=== PATIENT | female | born 1950 | race Caucasian/White ===

== ENCOUNTER → 2016-12-18 | Day surgery (SDC) | payer MEDICARE, OTHER ==
[~2016-12-18] VITALS: Ht 162.6 cm; Wt 83.9 kg
[~2016-12-18] MED LIST: /IPRA3SP; /MOXI40TA; ACETAMINOPHEN 325 MG TAB PO PRN; ACETYLCHOLINE OPHTH SOLN 1% 2ML As Ordered ONE; ALBU83IN; ASPI325T PO; ATEN100T PO; ATENOLOL50 PO; AcetaZOLAMIDE 500 MG ER CAP PO ONE; BABY81CH; BSS with VANC/TOB/EPI for EYE CASES IR ONE; CEFUROXIME 1MG/0.1ML INTRACAMERAL INJ As Ordered ONE; CEFUROXIME 1MG/0.1ML INTRACAMERAL INJ ICAM ONE; CYCLOPENTOLATE 2% OPHTH SOLN XX ONE; HEALON DUET (HEALON 10MG/ML 0.55ML & HEALON ENDOCOAT 30MG/ML 0.85ML) As Ordered ONE; HYDR12.55 PO; KETOROLAC 0.5% OPHTH SOLN XX ONE; LIDOCAINE 1% SDV 5 ML VIAL As Ordered ONE; LIDOCAINE 4% INJ 5 ML AMP OU ONE; LIPI20TA; MIDAZOLAM INJ 2 MG/2 ML VIAL (J2250) As Ordered ONE; OFLOXACIN 0.3 % (OCUFLOX) OPTH SOL 5ML XX ONE; PHENYLEPHRINE 2.5% OPHTH SOL 2ML XX ONE; POVIDONE-IODINE 5% OPHTH PREP SOL 30ML As Ordered ONE; PRAVACHOL2 PO; PROPARACAINE 0.5% OPHTH SOL 15ML XX PRN; PROV90AE; TENO50TA; TRIMETHOBENZAMIDE 300 MG CAP PO PRN; TROPICAMIDE 1% OPHTH SOLN 2 ML XX ONE; [UNRECOGNIZED DRUG - OTHER] TOPICAL; fentaNYL 100 MCG/2 ML INJECTION (J3010) As Ordered ONE
[2016-12-18 09:40] VITALS: BP 120/86
--- NOTE | 2016-12-18 13:28 | RO ---
DATE OF PROCEDURE: 12/18/2016 PREOPERATIVE DIAGNOSIS: Age related nuclear cataract, right eye. POSTOPERATIVE DIAGNOSIS: Age related nuclear cataract, right eye. PROCEDURE PERFORMED: Phacoemulsification and posterior chamber intraocular lens implantation, right eye. Lens used was a PCB00 17.5 diopters. SURGEON: Poornima Phillips MD FUNERAL HOME ASSISTANT: ANESTHESIA: Topical with sedation. DESCRIPTION OF PROCEDURE: The patient was prepped and draped in the usual fashion. A lid speculum was placed between the lids. The eye was fixated. A stab incision was made to the anterior chamber, and 1% non-preserved lidocaine was instilled. Then, viscoelastic was instilled. The eye was re-fixated. A 2.75 mm sapphire keratome was used to make a clear corneal temporal limbal incision. Capsulorrhexis was begun with a 30-gauge bent needle and then carried out in a circular fashion with capsulorrhexis forceps. The lens was hydrodissected, and then the phacoemulsification unit was used to make a groove in the nucleus in two meridians. The nucleus was then cracked into four quadrants. Each quadrant was removed with the phacoemulsification unit. Any remaining cortex was removed with the irrigation and aspiration (I and A) unit. Capsular bag was refilled with viscoelastic. A posterior chamber intraocular lens was placed in the capsular bag without difficulty. Any remaining viscoelastic was removed with the I and A unit. The wound was hydrated, and Miochol and cefuroxime were instilled into the anterior chamber. The patient tolerated the procedure well and went to the recovery room in stable condition.
== END | disposition home or self-care (01) ==
LOC: M SDC 06:25
PROVIDERS: ATTEND Ophthalmology
DX: H25.11 Age-related nuclear cataract, right eye (principal); I10 Essential (primary) hypertension; G47.30 Sleep apnea, unspecified; J44.9 Chronic obstructive pulmonary disease, unspecified; Z72.0 Tobacco use; Z88.5 Allergy status to narcotic agent; Z79.899 Other long term (current) drug therapy; Z79.82 Long term (current) use of aspirin; Z98.51 Tubal ligation status
CPT/HCPCS: 66984; J2250; J3010; V2632

== ENCOUNTER → 2016-12-25 | Day surgery (SDC) | payer MEDICARE, OTHER ==
[~2016-12-25] VITALS: Ht 162.6 cm; Wt 83.9 kg
[~2016-12-25] MED LIST changes: +ACETYLCHOLINE OPHTH SOLN 1% 2ML XX ONE; +CYCLOPENTOLATE 2% OPHTH SOLN As Ordered ONE; +CYCLOPENTOLATE 2% OPHTH SOLN OS ONE; -CYCLOPENTOLATE 2% OPHTH SOLN XX ONE; +D5W/0.2% SODIUM CHLORIDE 1,000 ML IV SCH; +HEALON DUET (HEALON 10MG/ML 0.55ML & HEALON ENDOCOAT 30MG/ML 0.85ML) XX ONE; +KETOROLAC 0.5% OPHTH SOLN OS ONE; -KETOROLAC 0.5% OPHTH SOLN XX ONE; +LIDOCAINE 1% SDV 5 ML VIAL XX ONE; +OFLOXACIN 0.3 % (OCUFLOX) OPTH SOL 5ML As Ordered ONE; +OFLOXACIN 0.3 % (OCUFLOX) OPTH SOL 5ML OS ONE; -OFLOXACIN 0.3 % (OCUFLOX) OPTH SOL 5ML XX ONE; +PHENYLEPHRINE 2.5% OPHTH SOL 2ML As Ordered ONE; +PHENYLEPHRINE 2.5% OPHTH SOL 2ML OS ONE; -PHENYLEPHRINE 2.5% OPHTH SOL 2ML XX ONE; +PROPARACAINE 0.5% OPHTH SOL 15ML OS PRN; -PROPARACAINE 0.5% OPHTH SOL 15ML XX PRN; +TROPICAMIDE 1% OPHTH SOLN 2 ML As Ordered ONE; +TROPICAMIDE 1% OPHTH SOLN 2 ML OS ONE; -TROPICAMIDE 1% OPHTH SOLN 2 ML XX ONE
[2016-12-25 12:25] VITALS: BP 134/64
--- NOTE | 2016-12-25 13:44 | RO ---
DATE OF PROCEDURE: 12/25/2016 PREPROCEDURE DIAGNOSIS: Age-related nuclear cataract, left eye. POSTPROCEDURE DIAGNOSIS: Age-related nuclear cataract, left eye. PROCEDURE PERFORMED: Phacoemulsification and posterior chamber intraocular lens implantation, left eye. Lens used is a PCB 00 16.5 diopter. SURGEON: Poornima Phillips MD SWEEPER OPERATOR HIGHWAYS: ANESTHESIA: Topical with sedation. DESCRIPTION OF PROCEDURE: The patient was prepped and draped in the usual fashion. A lid speculum was placed between the lids. The eye was fixated. A stab incision was made to the anterior chamber, and 1% nonpreserved Lidocaine was instilled. Then, viscoelastic was instilled. The eye was refixated. A 2.75 mm sapphire keratome was used to make a clear corneal temporal limbal incision. Capsulorrhexis was begun with a 30-gauge bent needle and then carried out in a circular fashion with capsulorrhexis forceps. The lens was hydrodissected, and then the phacoemulsification unit was used to make a groove in the nucleus and two meridians. The nucleus was then cracked into four quadrants. Each quadrant was removed with the phacoemulsification unit. Any remaining cortex was removed with the I and A unit. Capsular bag was refilled with viscoelastic. A posterior chamber intraocular lens was placed in the capsular bag without difficulty. Any remaining viscoelastic was removed with the I and A unit. The wound was hydrated, and Miochol and cefuroxime were instilled into the anterior chamber.
== END | disposition home or self-care (01) ==
LOC: M SDC 09:21
PROVIDERS: ATTEND Ophthalmology
DX: H25.12 Age-related nuclear cataract, left eye (principal); I10 Essential (primary) hypertension; E78.00 Pure hypercholesterolemia, unspecified; E11.9 Type 2 diabetes mellitus without complications; J44.9 Chronic obstructive pulmonary disease, unspecified; G47.33 Obstructive sleep apnea (adult) (pediatric); E55.9 Vitamin D deficiency, unspecified; F17.290 Nicotine dependence, other tobacco product, uncomplicated; Z88.5 Allergy status to narcotic agent; Z79.899 Other long term (current) drug therapy; Z79.82 Long term (current) use of aspirin; Z98.51 Tubal ligation status
CPT/HCPCS: 66984; J2250; J3010; V2632

== ENCOUNTER → 2018-01-12 | Outpatient (CLI) | payer MEDICARE, MEDICAID | LOC: M RAD 09:55 | DX: F17.210 Nicotine dependence, cigarettes, uncomplicated (principal) | CPT/HCPCS: G0297 ==

== ENCOUNTER → 2018-02-02 | Outpatient (REF) | payer MEDICARE, MEDICAID ==
[2018-02-02 14:39] LABS: BASO % 0.6 % (0.0-1.0); EOS # 0.1 10^3/uL (0.0-0.50); EOS % 1.9 % (0.0-3.0); HEMATOCRIT 37.9 % (36.0-47.0); HEMOGLOBIN 12.6 g/dl (12.0-16.0); IMMATURE GRANULOCYTE % 0.2 % (0-3.0); LYMPH # 1.8 10^3/uL (1.5-4.5); MEAN CORPUSCULAR HEMOGLOBIN 30.8 pg (27.0-33.0); MEAN CORPUSCULAR HGB CONC 33.2 g/dl (32.0-36.5); MEAN CORPUSCULAR VOLUME 92.7 fl (80.0-96.0); MONO # 0.3 10^3/uL (0.0-0.8); MONO % 6.4 % (0.0-5.0); NEUTROPHILS # 2.5 10^3/uL (1.8-7.7); NEUTROPHILS % 52.9 % (36.0-66.0); PLATELET COUNT, AUTOMATED 147 10^3/uL (150-450); RED BLOOD COUNT 4.09 10^6/uL (4.00-5.40); RED CELL DISTRIBUTION WIDTH 12.2 % (11.5-14.5); WHITE BLOOD COUNT 4.7 10^3/uL (4.0-10.0)
[2018-02-02 15:08] LABS: ALBUMIN 3.5 GM/DL (3.2-5.2); ALKALINE PHOSPHATASE 71 U/L (45-117); ALT/SGPT 26 U/L (12-78); ANION GAP 5 MEQ/L (8-16); AST/SGOT 21 U/L (7-37); BILIRUBIN,TOTAL 0.6 MG/DL (0.2-1.0); BLOOD UREA NITROGEN 12 MG/DL (7-18); CALCIUM LEVEL 8.3 MG/DL (8.8-10.2); CARBON DIOXIDE LEVEL 30 MEQ/L (21-32); CHLORIDE LEVEL 107 MEQ/L (98-107); CHOLESTEROL LEVEL 194 MG/DL (<200); CREATININE FOR GFR 0.63 MG/DL (0.55-1.30); FREE T4 1.03 NG/DL (0.76-1.46); GLOMERULAR FILTRATION RATE > 60.0 (>45); GLUCOSE, FASTING 82 MG/DL (70-100); HDL CHOLESTEROL 50 MG/DL (>40); LDL CHOLESTEROL 122.8 MG/DL (<100); NON-HDL-C 144 MG/DL; POTASSIUM SERUM 4.5 MEQ/L (3.5-5.1); SODIUM LEVEL 142 MEQ/L (136-145); TRIGLYCERIDES LEVEL 106 MG/DL (<150)
[2018-02-02 15:34] LABS: ESTIMATED AVERAGE GLUCOSE 114 MG/DL (60-110); HEMOGLOBIN A1c 5.6 %
== END ==
LOC: M SFHCSACK 10:49
DX: I10 Essential (primary) hypertension (principal); E78.4 Other hyperlipidemia; Z13.29 Encounter for screening for other suspected endocrine disorder; E11.9 Type 2 diabetes mellitus without complications; E55.9 Vitamin D deficiency, unspecified
CPT/HCPCS: 84443

== ENCOUNTER → 2018-04-21 | Outpatient (REF) | payer MEDICARE, MEDICAID | LOC: M SFHCLERA 09:07 | DX: D23.61 Other benign neoplasm of skin of right upper limb, including shoulder (principal) | CPT/HCPCS: 88304 ==

== ENCOUNTER → 2018-05-15 | Outpatient (CLI) | payer MEDICARE, MEDICAID ==
[2018-05-15 13:04] LABS: BASO % 0.5 % (0.0-1.0); EOS # 0.1 10^3/uL (0.0-0.50); EOS % 1.7 % (0.0-3.0); HEMATOCRIT 45.9 % (36.0-47.0); HEMOGLOBIN 15.4 g/dl (12.0-15.5); IMMATURE GRANULOCYTE % 0.7 % (0-3.0); LYMPH # 2.1 10^3/uL (1.5-4.5); LYMPH % 34.4 % (24.0-44.0); MEAN CORPUSCULAR HEMOGLOBIN 30.9 pg (27.0-33.0); MEAN CORPUSCULAR HGB CONC 33.6 g/dl (32.0-36.5); MONO # 0.3 10^3/uL (0.0-0.8); MONO % 5.6 % (0.0-5.0); NEUTROPHILS # 3.5 10^3/uL (1.8-7.7); NEUTROPHILS % 57.1 % (36.0-66.0); PLATELET COUNT, AUTOMATED 138 10^3/uL (150-450); RED BLOOD COUNT 4.99 10^6/uL (4.00-5.40); RED CELL DISTRIBUTION WIDTH 12.5 % (11.5-14.5); WHITE BLOOD COUNT 6.1 10^3/uL (4.0-10.0)
[2018-05-15 13:23] LABS: ALBUMIN 3.9 GM/DL (3.2-5.2); ALBUMIN/GLOBULIN RATIO 1.11 (1.00-1.93); ALKALINE PHOSPHATASE 61 U/L (45-117); ALT/SGPT 20 U/L (12-78); ANION GAP 9 MEQ/L (8-16); AST/SGOT 14 U/L (7-37); BILIRUBIN,TOTAL 0.8 MG/DL (0.2-1.0); BLOOD UREA NITROGEN 12 MG/DL (7-18); CALCIUM LEVEL 9.1 MG/DL (8.8-10.2); CARBON DIOXIDE LEVEL 30 MEQ/L (21-32); CHLORIDE LEVEL 103 MEQ/L (98-107); GLOMERULAR FILTRATION RATE > 60.0 (>45); GLUCOSE, FASTING 95 MG/DL (70-100); POTASSIUM SERUM 4.2 MEQ/L (3.5-5.1); SODIUM LEVEL 142 MEQ/L (136-145); TOTAL PROTEIN 7.4 GM/DL (6.4-8.2)
[2018-05-15 13:28] LABS: TOTAL 25(OH) VITAMIN D 51.1 NG/ML (30.0-100.0)
== END ==
LOC: M WUC 09:31
DX: I10 Essential (primary) hypertension (principal); E78.4 Other hyperlipidemia; E55.9 Vitamin D deficiency, unspecified
CPT/HCPCS: 80053

== ENCOUNTER → 2018-08-24 | Outpatient (REF) | payer MEDICARE, MEDICAID ==
[2018-08-24 14:57] LABS: BASO % 0.5 % (0.0-1.0); EOS # 0.1 10^3/uL (0.0-0.50); HEMOGLOBIN 15.8 g/dl (12.0-15.5); IMMATURE GRANULOCYTE % 0.3 % (0-3.0); LYMPH # 1.6 10^3/uL (1.5-4.5); LYMPH % 26.8 % (24.0-44.0); MEAN CORPUSCULAR HEMOGLOBIN 31.5 pg (27.0-33.0); MEAN CORPUSCULAR HGB CONC 33.6 g/dl (32.0-36.5); MEAN CORPUSCULAR VOLUME 93.6 fl (80.0-96.0); MONO # 0.4 10^3/uL (0.0-0.8); MONO % 5.7 % (0.0-5.0); NEUTROPHILS # 3.9 10^3/uL (1.8-7.7); NEUTROPHILS % 64.7 % (36.0-66.0); PLATELET COUNT, AUTOMATED 138 10^3/uL (150-450); RED BLOOD COUNT 5.02 10^6/uL (4.00-5.40); RED CELL DISTRIBUTION WIDTH 12.5 % (11.5-14.5); WHITE BLOOD COUNT 6.1 10^3/uL (4.0-10.0)
[2018-08-24 15:30] LABS: ALBUMIN/GLOBULIN RATIO 1.11 (1.00-1.93); ALKALINE PHOSPHATASE 62 U/L (45-117); ALT/SGPT 22 U/L (12-78); ANION GAP 8 MEQ/L (8-16); AST/SGOT 20 U/L (7-37); BILIRUBIN,TOTAL 0.9 MG/DL (0.2-1.0); BLOOD UREA NITROGEN 10 MG/DL (7-18); CALCIUM LEVEL 9.3 MG/DL (8.8-10.2); CARBON DIOXIDE LEVEL 30 MEQ/L (21-32); CHLORIDE LEVEL 102 MEQ/L (98-107); CHOLESTEROL LEVEL 208 MG/DL (<200); CHOLESTEROL RISK RATIO 3.714 (<5); CREATININE FOR GFR 0.65 MG/DL (0.55-1.30); GLOMERULAR FILTRATION RATE > 60.0 (>45); GLUCOSE, FASTING 87 MG/DL (70-100); HDL CHOLESTEROL 56 MG/DL (>40); LDL CHOLESTEROL 129 MG/DL (<100); NON-HDL-C 152 MG/DL; POTASSIUM SERUM 5.1 MEQ/L (3.5-5.1); SODIUM LEVEL 140 MEQ/L (136-145); TOTAL PROTEIN 7.6 GM/DL (6.4-8.2); TRIGLYCERIDES LEVEL 117 MG/DL (<150)
[2018-08-24 15:34] LABS: ESTIMATED AVERAGE GLUCOSE 108 MG/DL (60-110); HEMOGLOBIN A1c 5.4 %
== END ==
LOC: M SFHCSACK 08:52
DX: I10 Essential (primary) hypertension (principal); E78.4 Other hyperlipidemia; E11.9 Type 2 diabetes mellitus without complications
CPT/HCPCS: 80053

== ENCOUNTER 2018-12-03 13:10 | Inpatient (IN) | payer MEDICARE, MEDICAID ==
[~2018-12-03] VITALS: Ht 157.5 cm; Wt 88.0 kg
[~2018-12-03 13:10] MED LIST changes: -ACETAMINOPHEN 325 MG TAB PO PRN; -ACETYLCHOLINE OPHTH SOLN 1% 2ML As Ordered ONE; -ACETYLCHOLINE OPHTH SOLN 1% 2ML XX ONE; -AcetaZOLAMIDE 500 MG ER CAP PO ONE; -BSS with VANC/TOB/EPI for EYE CASES IR ONE; -CEFUROXIME 1MG/0.1ML INTRACAMERAL INJ As Ordered ONE; -CEFUROXIME 1MG/0.1ML INTRACAMERAL INJ ICAM ONE; -CYCLOPENTOLATE 2% OPHTH SOLN As Ordered ONE; -CYCLOPENTOLATE 2% OPHTH SOLN OS ONE; -D5W/0.2% SODIUM CHLORIDE 1,000 ML IV SCH; -HEALON DUET (HEALON 10MG/ML 0.55ML & HEALON ENDOCOAT 30MG/ML 0.85ML) As Ordered ONE; -HEALON DUET (HEALON 10MG/ML 0.55ML & HEALON ENDOCOAT 30MG/ML 0.85ML) XX ONE; -KETOROLAC 0.5% OPHTH SOLN OS ONE; -LIDOCAINE 1% SDV 5 ML VIAL As Ordered ONE; -LIDOCAINE 1% SDV 5 ML VIAL XX ONE; -LIDOCAINE 4% INJ 5 ML AMP OU ONE; -MIDAZOLAM INJ 2 MG/2 ML VIAL (J2250) As Ordered ONE; -OFLOXACIN 0.3 % (OCUFLOX) OPTH SOL 5ML As Ordered ONE; -OFLOXACIN 0.3 % (OCUFLOX) OPTH SOL 5ML OS ONE; -PHENYLEPHRINE 2.5% OPHTH SOL 2ML As Ordered ONE; -PHENYLEPHRINE 2.5% OPHTH SOL 2ML OS ONE; -POVIDONE-IODINE 5% OPHTH PREP SOL 30ML As Ordered ONE; -PROPARACAINE 0.5% OPHTH SOL 15ML OS PRN; -TRIMETHOBENZAMIDE 300 MG CAP PO PRN; -TROPICAMIDE 1% OPHTH SOLN 2 ML As Ordered ONE; -TROPICAMIDE 1% OPHTH SOLN 2 ML OS ONE; -fentaNYL 100 MCG/2 ML INJECTION (J3010) As Ordered ONE
[2018-12-03 13:45] LABS: BASO % 0.4 % (0.0-1.0); EOS # 0.1 10^3/uL (0.0-0.50); EOS % 1.3 % (0.0-3.0); HEMATOCRIT 47.3 % (36.0-47.0); HEMOGLOBIN 16.2 g/dl (12.0-15.5); LYMPH # 1.9 10^3/uL (1.5-4.5); MEAN CORPUSCULAR HEMOGLOBIN 31.5 pg (27.0-33.0); MEAN CORPUSCULAR HGB CONC 34.2 g/dl (32.0-36.5); MEAN CORPUSCULAR VOLUME 91.8 fl (80.0-96.0); MONO # 0.4 10^3/uL (0.0-0.8); MONO % 5.1 % (0.0-5.0); NEUTROPHILS # 5.1 10^3/uL (1.8-7.7); NEUTROPHILS % 67.9 % (36.0-66.0); PLATELET COUNT, AUTOMATED 149 10^3/uL (150-450); RED BLOOD COUNT 5.15 10^6/uL (4.00-5.40); WHITE BLOOD COUNT 7.4 10^3/uL (4.0-10.0)
[2018-12-03] MEDS ORDERED: GENTAMICIN 0.3% OPHTH OINT 3.5 GM OU ONE (13:45)
[2018-12-03 13:50] LABS: INR 0.96; PROTHROMBIN TIME 12.9 SECONDS (12.1-14.4)
[2018-12-03 13:51] LABS: PARTIAL THROMBOPLASTIN TIME 35.1 SECONDS (25.4-37.6)
--- NOTE | 2018-12-03 13:56 | REP ---
CT Head without contrast HISTORY: Infarction COMPARISON: 12/30/2006 Areas of decreased attenuation are present in the periventricular white matter. This represents small-vessel ischemic disease. There is no intraparenchymal hemorrhage, acute infarct, mass or midline shift. The ventricular system the ventricular system and cortical sulci are dilated consistent with minimal volume loss. There is no extra cerebral collection. There is no fracture. A 1.7 cm lucent defect is present in the right parietal bone at the vertex. This most likely represents a hemangioma. The visualized sinuses are clear. IMPRESSION: 1. Small vessel ischemic disease. 2. Minimal volume loss. Electronically Signed by Jai Lockett MD 12/03/2018 01:48 P
[2018-12-03 13:58] LABS: BLOOD UREA NITROGEN 10 MG/DL (7-18); CALCIUM LEVEL 8.9 MG/DL (8.8-10.2); CARBON DIOXIDE LEVEL 28 MEQ/L (21-32); CHLORIDE LEVEL 101 MEQ/L (98-107); CPK CREATINE PHOSPHOKINASE 109 U/L (26-192); CREATININE FOR GFR 0.75 MG/DL (0.55-1.30); GLOMERULAR FILTRATION RATE > 60.0 (>45); GLUCOSE, FASTING 133 MG/DL (70-100); MB/CK RELATIVE INDEX 1.65 (< OR =4); POTASSIUM SERUM 3.7 MEQ/L (3.5-5.1); SODIUM LEVEL 135 MEQ/L (136-145); TROPONIN I < 0.02 NG/ML (< 0.10)
--- NOTE | 2018-12-03 14:08 | REP ---
Chest one-view HISTORY: Infarction Comparison: 11/03/2008 The lungs are clear. The heart is upper limits of normal in size. The pulmonary vasculature is normal in appearance. Impression: No acute disease. Electronically Signed by Jai Lockett MD 12/03/2018 01:59 P
[2018-12-03] MEDS ORDERED: HYDR25TAB PO (14:55)
[2018-12-03] MEDS ORDERED: ATEN100T PO (14:55)
[2018-12-03] MEDS ORDERED: ACETAMINOPHEN TAB 650MG DOSE (2X325MG) PO PRN (16:00)
[2018-12-03] MEDS ORDERED: NICOTINE 21MG/24HR 1 EA TRANSDERMAL TD PRN (16:00)
[2018-12-03] MEDS ORDERED: GLUCOSE 4 GM CHEW TABLET PO PRN (16:00)
[2018-12-03] MEDS ORDERED: ONDANSETRON 4MG/2ML VIAL (J2405) IV PRN (16:00)
[2018-12-03] MEDS ORDERED: GLUCAGON FOR INJ 1 MG VIAL (J1610) SC PRN (16:00)
[2018-12-03] MEDS ORDERED: DEXTROSE 50% 50 ML SYRINGE IV PRN (16:00)
[2018-12-03] MEDS ORDERED: PROHANCE 279.3MG/ML 5ML VIAL (A9576) As Ordered ONE (16:01)
[2018-12-03] MEDS ORDERED: PROHANCE 279.3MG/ML 15ML VIAL (A9576) As Ordered ONE (16:02)
--- NOTE | 2018-12-03 17:05 | REP ---
MR of the brain without contrast History: Right facial droop 3-D [id number] MR angiography was performed at the level of the [place] of [place]. There is no aneurysm or arteriovenous malformation. There is origin of the posterior cerebral arteries. The vertebral arteries and basilar artery are hypoplastic. Moderate to severe atherosclerotic disease involves the distal left vertebral and basilar arteries. Major intracranial vessels are patent. Impression 1. There is no aneurysm or arteriovenous malformation. 2. Atherosclerotic disease as described above. Electronically Signed by Jai Lockett MD 12/03/2018 04:56 P
--- NOTE | 2018-12-03 17:25 | REP ---
MR BRAIN WITHOUT CONTRAST: HISTORY: Right visual droop. COMPARISON: CT 12/03/2018. Areas of increased signal intensity on T2-weighted images are present in the periventricular and subcortical white matter. This represents small vessel ischemic disease. There is no intraparenchymal hemorrhage, infarct, mass or midline shift. The ventricular system and cortical sulci are dilated consistent with minimal volume loss. There is no extracerebral collection. A 1.7 cm focus of increased signal intensity is present in the right parietal bone at the vertex. This most likely represents a hemangioma. The sinuses are clear. IMPRESSION: 1. Small vessel ischemic disease. 2. Minimal volume loss. Electronically Signed by Jai Lockett MD 12/04/2018 08:32 A
[2018-12-03] MEDS: HumaLOG INSULIN (NovoLOG) PER UNIT SC SCH (17:30)
--- NOTE | 2018-12-03 18:10 | REPVR ---
EXAM: MR Angiography Neck Without and With Contrast EXAM DATE/TIME: 12/03/2018 4:50 PM CLINICAL HISTORY: 68 years old, female; Signs and symptoms; Weakness; Patient HX: Right facial droop TECHNIQUE: Magnetic resonance angiography images of the neck without and with intravenous contrast. COMPARISON: MRA BRAIN W/O CONTRAST 12/03/2018 4:18 PM FINDINGS: Right common carotid artery: Normal. No significant stenosis. No dissection or occlusion. Right internal carotid artery: Mild atherosclerosis with less than 50% stenosis. No dissection or occlusion. Right external carotid artery: Normal. No significant stenosis. No dissection or occlusion. Right vertebral artery: Diffusely hypoplastic. The proximal 1.2 cm of the right vertebral artery from the origin not well visualized. Left common carotid artery: Normal. No significant stenosis. No dissection or occlusion. Left internal carotid artery: Mild atherosclerosis with less than 50% stenosis. No dissection or occlusion. Left external carotid artery: Normal. No significant stenosis. No dissection or occlusion. Left vertebral artery: Normal. No significant stenosis. No dissection or occlusion. IMPRESSION: No hemodynamically significant stenosis. Congenitally hypoplastic RIGHT vertebral artery, proximal most segment from the origin not well seen. This may be due to slow flow versus severe stenosis. COMMENT: Reference per NASCET criteria for degree of stenosis: Mild: <50% stenosis. Moderate: 50-69% stenosis. Severe: 70-94% stenosis. Near occlusion: 95-99% stenosis. Electronically signed by: Rhina Vasquez On 12/03/2018 18:10:08 PM
--- NOTE | 2018-12-03 18:12 | HPE ---
DATE OF ADMISSION: 12/03/2018 PRIMARY CARE PROVIDER: Lulu Mckoy NEUROLOGIST: Dr. Whitfield CHIEF COMPLAINT: Right-sided facial droop. HISTORY OF THE PRESENT ILLNESS: This is a 68-year-old female patient with underlying medical history of hypertension, dyslipidemia, diabetes mellitus - diet controlled, chronic obstructive pulmonary disease (COPD), obstructive sleep apnea - not on continuous positive airway pressure (CPAP), vitamin D deficiency, history of transient ischemic attack (TIA), presented since yesterday afternoon with right-sided facial droop and left-sided facial numbness. The facial numbness, as per patient, is around the lips and has been intermittent. Right-sided facial droop persisted. The patient became more concerned after speaking with the family, subsequently presented to the hospital today. Denies any trouble swallowing. Denies any vision change, hearing change. Denies any recent upper respiratory infection (URI). Denies any headache. Denies any other motor deficits. Denies recent travel. No fevers or chills. ALLERGIES: To CODEINE. PAST MEDICAL HISTORY: See above. PAST SURGICAL HISTORY: Tubal ligation. Cataract surgery, bilateral. Sebaceous cystectomy of right arms. FAMILY HISTORY: Father with cancer. Mother of a stroke. SOCIAL HISTORY: Patient current smoker one pack per day, refused nicotine patch. Drinks wine once a month on rare occasions. No other illicit drug use. REVIEW OF SYSTEMS: Reported right-sided facial droop and left-sided facial numbness. All other review of systems are negative. HOME MEDICATIONS: - aspirin 325 mg by mouth daily - atenolol 100 mg by mouth nightly - hydrochlorothiazide 25 mg by mouth daily PHYSICAL EXAMINATION: VITAL SIGNS: Temperature 97.6, pulse 53, respirations 20, blood pressure 140/63, pulse oximetry 95% on room air. GENERAL: Patient obese, alert, comfortable, in no acute distress. HEENT: Noted significant right-sided facial droop with flattening of left nasal labial fold. Right-sided periocular muscle is also weak. Decreased ability to close patient's right eye. Sensation to light touch intact bilateral facial. Other cranial nerves grossly intact. Pupils bilateral equal, round and reactive. PULMONARY: Bilateral clear. CARDIAC: Regular, S1, S2. No murmurs detected. ABDOMEN: Soft, nontender, obese. EXTREMITIES: No clubbing, cyanosis, or edema. NEUROLOGIC: Right-sided facial droop. Right 7th nerve palsy. All other cranial nerves grossly intact. Strength bilateral upper and lower extremities 5/5. Crxygu-hj-zhkt intact. EKG: Sinus bradycardia at 52. LABORATORY: WBC 7.4, hemoglobin and hematocrit 16.2 over 47.3, platelets 149. Chemistry: Sodium 135, potassium 3.7, chloride 101, bicarbonate 28, BUN 10, creatinine 0.75. Cardiac enzymes negative times one. ASSESSMENT AND PLAN: This is a 68-year-old female patient with underlying medical history of obesity, hypertension, dyslipidemia, diabetes mellitus - diet controlled, chronic obstructive pulmonary disease, obstructive sleep apnea - not on CPAP, history of transient ischemic attack 2006, low vitamin D level, presented with a one-day history of right-sided facial droop and left-sided facial numbness. PROBLEMS: 1. Right-sided facial droop. Right 7th cranial nerve palsy. Possible TIA versus Hancock's palsy. Initially, neurology consulted, MRI is appreciated, neurologic checks. Initially started on aspirin 325 mg and Lipitor. Given MRI is negative, case discussed with neurology, likely secondary to Hancock's palsy. Patient started on prednisone and valacyclovir but will continue patient's home dose of aspirin. Likely discharge in the next 24 hours. Artificial Tears have also been ordered. 2. Hypertension. Given MRI has been negative, patient's blood pressure medication has been restarted with atenolol and hydrochlorothiazide. Monitor blood pressure. 3. Dyslipidemia. Starting statin. Will followup lipid panel. 4. Diabetes - diet controlled. Given the patient is on steroid, will place the patient on insulin according to protocol. Follow fingersticks. Followup A1c. 5. Obstructive sleep apnea. ISAEL protocol. Patient not compliant with BiPAP. 6. History of transient ischemic attack. Continue aspirin and statin. Continue blood pressure medication as ordered. 7. Obesity, complicating care. 8. Deep vein thrombosis (DVT) prophylaxis. Heparin subcu. DISPOSITION: Likely discharge in the next 24 hours.
[2018-12-03 18:15] VITALS: BP_SYST 150
[2018-12-03 18:29] LABS: C REACTIVE PROTEIN QUANTITATIV < 0.30 MG/DL (0.00-0.30); CPK CREATINE PHOSPHOKINASE 98 U/L (26-192); MB/CK RELATIVE INDEX 1.84 (< OR =4); TROPONIN I < 0.02 NG/ML (< 0.10)
[2018-12-03 18:32] LABS: FREE THYROXINE INDEX 4.1 % (1.3-4.8); THYROID STIMULATING HORMONE 3.58 uIU/ML (0.358-3.740); THYROXINE (T4) 11.5 UG/DL (4.5-12.0)
[2018-12-03] MEDS: predniSONE 20 MG TAB PO SCH (18:50)
[2018-12-03 19:49] VITALS: BP 132/62
[2018-12-03 21:00] VITALS: BP 132/62
[2018-12-03] MEDS ORDERED: ATORVASTATIN 20 MG TAB PO SCH (21:00)
[2018-12-03] MEDS: DOCUSATE SODIUM 100 MG CAP PO SCH (21:00)
[2018-12-03] MEDS ORDERED: ATENOLOL 50 MG TAB PO SCH (21:00)
[2018-12-03] MEDS: valACYclovir HCL 500 MG TAB PO SCH (22:01)
[2018-12-03] MEDS: HEPARIN SOD (PORCINE) 5000 UNITS/ML VIAL SC SCH (22:01)
[2018-12-03] MEDS: POLYVINYL ALCOHOL OPHTH SOLN 15 ML(LIQUITEARS) OD SCH (22:02)
[2018-12-03 23:36] LABS: CPK CREATINE PHOSPHOKINASE 156 U/L (26-192); MB/CK RELATIVE INDEX 2.12 (< OR =4); TROPONIN I < 0.02 NG/ML (< 0.10)
[2018-12-03 23:59] VITALS: BP 134/71
[2018-12-04 03:59] VITALS: BP 135/63
[2018-12-04 04:54] LABS: HEMATOCRIT 44.9 % (36.0-47.0); HEMOGLOBIN 15.3 g/dl (12.0-15.5); MEAN CORPUSCULAR HEMOGLOBIN 31.5 pg (27.0-33.0); MEAN CORPUSCULAR HGB CONC 34.1 g/dl (32.0-36.5); MEAN CORPUSCULAR VOLUME 92.4 fl (80.0-96.0); PLATELET COUNT, AUTOMATED 120 10^3/uL (150-450); RED BLOOD COUNT 4.86 10^6/uL (4.00-5.40); WHITE BLOOD COUNT 6.5 10^3/uL (4.0-10.0)
[2018-12-04 05:18] LABS: HEMOGLOBIN A1c 5.5 %
[2018-12-04 05:23] LABS: ALBUMIN 3.3 GM/DL (3.2-5.2); ALT/SGPT 23 U/L (12-78); BILIRUBIN,TOTAL 0.6 MG/DL (0.2-1.0); BLOOD UREA NITROGEN 13 MG/DL (7-18); CALCIUM LEVEL 8.9 MG/DL (8.8-10.2); CARBON DIOXIDE LEVEL 28 MEQ/L (21-32); CHLORIDE LEVEL 104 MEQ/L (98-107); CHOLESTEROL LEVEL 215 MG/DL (<200); CHOLESTEROL RISK RATIO 3.771 (<5); CREATININE FOR GFR 0.78 MG/DL (0.55-1.30); GLOMERULAR FILTRATION RATE > 60.0 (>45); GLUCOSE, FASTING 151 MG/DL (70-100); HDL CHOLESTEROL 57 MG/DL (>40); LDL CHOLESTEROL 145 MG/DL (<100); MAGNESIUM LEVEL 2.2 MG/DL (1.8-2.4); NON-HDL-C 158 MG/DL; SODIUM LEVEL 139 MEQ/L (136-145); TRIGLYCERIDES LEVEL 63 MG/DL (<150)
[2018-12-04] MEDS: valACYclovir HCL 500 MG TAB PO SCH ×2 (05:58→14:56)
[2018-12-04 08:00] VITALS: BP 120/76
[2018-12-04] MEDS: HumaLOG INSULIN (NovoLOG) PER UNIT SC SCH ×2 (08:59→11:50)
[2018-12-04] MEDS: predniSONE 20 MG TAB PO SCH (08:59)
[2018-12-04] MEDS: DOCUSATE SODIUM 100 MG CAP PO SCH (08:59)
[2018-12-04] MEDS ORDERED: SLF 3 ML SYR IV PRN (09:00)
[2018-12-04] MEDS ORDERED: hydroCHLOROthiazide 25 MG TAB PO SCH (09:00)
[2018-12-04] MEDS: POLYVINYL ALCOHOL OPHTH SOLN 15 ML(LIQUITEARS) OD SCH (09:00)
[2018-12-04] MEDS ORDERED: ASPIRIN 325 MG TAB PO SCH (09:00)
[2018-12-04] MEDS: HEPARIN SOD (PORCINE) 5000 UNITS/ML VIAL SC SCH (09:00)
--- NOTE | 2018-12-04 09:00 | NUR ---
Swallow evaluation completed d/t decreased sensation and weakness in right lip and cheek. Pt reports lingual function/sensation wnl. Pt presents with mild oral phase dysphagia as characterized by weak cheek/lip ROM and sensation. Tongue deviates very slightly upon protrusion. Recommend: Regular solids/liquids. Place bolus on the left side. Dysphagia therapy not warranted at this time. Please feel free to contact [facility] with any questions or concerns. Addendum: 12/04/18 at 0904 by LEVI LAURA [facility] Amended: Links added.
--- NOTE | 2018-12-04 09:05 | CR ---
DATE OF CONSULTATION: 12/04/2018 REFERRING PROVIDER: Dr. Lucy Soto. REASON FOR CONSULTATION: Facial weakness. The patient is a 68-year-old female with past medical history significant for hyperlipidemia, history of tobacco abuse presenting to the hospital with chief complaint of right-sided facial weakness ongoing through the day. The patient has been experiencing paresthesias of the left side of the face. The patient does admit that she has abnormal taste and has hyperacusis of the right ear. She has slight inability to fully raise the right side of her eyebrows as well as she can on the left. The patient does have significant eyelid closure weakness. MRI of the brain was obtained and was negative for any acute stroke. The patient does have Hancock's palsy. The patient will be tested for Lyme disease as well as sarcoidosis given paresthesias and weakness of the face. We will go ahead and start the patient on prednisone and valacyclovir. The patient is agreeable for admission to the hospital for further observation. She denies any other weakness or numbness throughout the body at the present time. She continues to smoke and understands that she is at high risk of stroke. REVIEW OF SYSTEMS: 14-point review of systems obtained and is negative except as per HPI. PAST MEDICAL HISTORY: Hypertension. Hyperlipidemia. Tobacco abuse. PAST SURGICAL HISTORY: None. FAMILY HISTORY: Noncontributory. SOCIAL HISTORY: The patient uses one pack a tobacco per day and drinks occasional alcohol. Denies any recreational drug use. ALLERGIES: CODEINE. HOME MEDICATIONS: - aspirin 325 mg by mouth daily - Lipitor 40 mg by mouth daily - medications for diabetes PHYSICAL EXAMINATION: Blood pressure 135/62, pulse rate is 52, respiratory rate is 20, oxygenation 96% on room air, temperature 97.6 degrees Fahrenheit. The patient is awake, alert, oriented to person, place and time. Speech, language, comprehension and repetition are intact. Pupils are 3 mm round, reactive to light. There is no nystagmus. Extraocular movements are intact. Sensation V1, V2, V3 is intact to light touch. There is significant facial weakness on the right side of the patient's face with subtle weakness of the right forehead. Significant weakness of right eyelid closure. The patient has no sensory loss of the face to light touch. Hearing is subjectively slightly increased on the right side compared to the left. The patient states that taste is abnormal. There is no pronator drift. Strength is 5/5 including bilateral deltoids, biceps, triceps, handgrip, iliopsoas, quadriceps, anterior tibialis. Deep tendon reflexes are 2+ throughout with reduced Achilles reflexes. Romberg testing is negative. Gait is normal. ASSESSMENT: 1. Hancock's palsy of the right face. 2. Tobacco abuse. 3. Underlying diabetes. 4. Hypertension. 5. Hyperlipidemia. PLAN: 1. Start prednisone taper over the next 8-10 days. Start valacyclovir. The patient can follow up in the [facility] neurology office upon discharge. The patient can wear eye patch. Lacri-Lube and artificial tears can be used for the patient's affected right eye.
--- NOTE | 2018-12-04 09:14 | ECGEPIP ---
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
[2018-12-04] MEDS ORDERED: VALA500T4 PO (11:06)
[2018-12-04] MEDS ORDERED: PRED10TA2 PO (11:06)
[2018-12-04] MEDS ORDERED: ARTI99.0 OD (11:06)
[2018-12-04] MEDS ORDERED: LIPI20TA PO (11:08)
[2018-12-04 12:00] VITALS: BP_SYST 110; BP_SYST 150; BP_DIAS 78
[2018-12-04] MEDS ORDERED: SLF 3 ML SYR IV SCH (14:00)
--- NOTE | 2018-12-04 18:52 | DSES ---
DATE OF ADMISSION: 12/03/2018 DATE OF DISCHARGE: 12/04/2018 NEUROLOGIST: Dr. Whitfield PRIMARY CARE PROVIDER: Dr. Lulu Mckoy FINAL DIAGNOSES: 1. Hancock's palsy of the right face. 2. Tobacco abuse. 3. Underlying diabetes mellitus. 4. Hypertension. 5. Dyslipidemia. 6. Obstructive sleep apnea. 7. History of obesity. 8. History of transient ischemic attack. HISTORY OF PRESENT ILLNESS: This is a 68-year-old female patient with underlying medical history of hypertension, dyslipidemia, diabetes mellitus, diet controlled, obesity, chronic obstructive pulmonary disease (COPD), obstructive sleep apnea, not on continuous positive airway pressure (CPAP), vitamin D deficiency, history of transient ischemic attacks (TIA) who presented with 1-day history of right-sided facial droop and left-sided facial numbness. As per patient, facial numbness is around patient's lips. Has been intermittent. Right-sided facial droop persisted. Patient became more concerned after speaking with family. Subsequently came to the hospital. Denies any trouble swallowing. Denies any vision change, hearing change. No other neurological deficit. No recent upper respiratory infection (URI). Denies any headache. Denies any fevers or chills. HOSPITAL COURSE: Patient was admitted to the hospital. Neurology consulted. Status post MRI/MRA of the brain and MRI of the carotids, which were all within normal limits. Upon further evaluation, patient was thought to be likely due to Hancock's palsy. Subsequently, patient was initially placed on full-dose aspirin, which patient was on already at home, and statin. Upon further evaluation, diagnosis of Hancock's palsy was made. Subsequently, patient was started on prednisone and acyclovir as per neurology recommendation. Patient's blood pressure medication was restarted. Currently patient is comfortable with persistent right-sided facial droop. Artificial tears were also provided. Patient tolerating oral, ready to be discharged for further care as outpatient. Patient is ambulatory and comfortable, tolerating oral in no acute distress. VITAL SIGNS: Temperature 97.3, pulse 56, respirations 20, blood pressure 150/78, pulse oximetry 98% on room air. LABORATORY DATA: WBC 6.5, hemoglobin and hematocrit 15.3/44.9, platelets 120. Chemistry: Sodium 139, potassium 4, chloride 104, bicarbonate 28, BUN 13, creatinine 0.78. Cardiac enzymes negative times two. TSH within normal limits. PHYSICAL EXAMINATION: GENERAL: Patient alert, comfortable in no acute distress, obese. HEENT: Normocephalic, atraumatic. Right-sided facial droop with flattening of right-sided nasolabial fold. Diminished ability to close patient's right eye. Sensation to touch on patient's face symmetrical bilateral. Other cranial nerves grossly intact. Pupils equal, round, and reactive. Extraocular muscles intact. PULMONARY: Bilaterally clear. CARDIAC: Regular, S1, S2. ABDOMEN: Soft, nontender. Positive bowel sounds. EXTREMITIES: No clubbing, cyanosis, and edema. NEUROLOGIC: Right-sided facial droop. Right 7th nerve palsy. All other cranial nerves grossly intact. Motor strength intact in bilateral upper and lower extremities. Pzqlui-ff-hlkt intact. DISCHARGE MEDICATIONS: - artificial tears four times a day - Lipitor 40 mg by mouth daily - prednisone taper, take four tablets daily for 3 days, then three tablets daily for 3 days, then two tablets daily for 3 days, then one tablet daily for 3 days, then stop. - valacyclovir 1000 mg by mouth every 8 hours for 7 days - Continue aspirin 325 mg by mouth daily. - atenolol 100 mg by mouth at bedtime - hydrochlorothiazide 25 mg by mouth daily DISCHARGE INSTRUCTIONS: Please followup with primary care provider in 7 days. Followup glucose closely at home given patient is now on prednisone. If glucose persistently elevated, call primary care provider for further recommendations. Weight loss. Please return if symptoms worsen. Smoking cessation recommended.
[2018-12-08 00:06] LABS: ANGIOTENSIN 1 CONVERTING ENZYM 23 U/L (14-82); Lyme Disease IgG/IgM Antibodie <0.91 ISR (0.00-0.90); Lyme Disease IgM Ab Quantitati <0.80 index (0.00-0.79)
== END 2018-12-04 15:10 | disposition home or self-care (01) | DRG 74 ==
LOC: M ED 13:10 → M ED INP 15:22 → M PCU 18:09
PROVIDERS: ADMIT Hospitalist; ATTEND Hospitalist
DX: G51.0 Bell's palsy (principal); I10 Essential (primary) hypertension; E78.5 Hyperlipidemia, unspecified; E11.9 Type 2 diabetes mellitus without complications; J44.9 Chronic obstructive pulmonary disease, unspecified; G47.33 Obstructive sleep apnea (adult) (pediatric); E55.9 Vitamin D deficiency, unspecified; E66.9 Obesity, unspecified; H93.231 Hyperacusis, right ear; F17.210 Nicotine dependence, cigarettes, uncomplicated; Z86.73 Personal history of transient ischemic attack (TIA), and cerebral infarction without residual deficits; Z98.41 Cataract extraction status, right eye; Z98.42 Cataract extraction status, left eye; Z79.82 Long term (current) use of aspirin; Z79.899 Other long term (current) drug therapy; Z88.5 Allergy status to narcotic agent; Z68.35 Body mass index [BMI] 35.0-35.9, adult

== ENCOUNTER → 2019-03-01 | Outpatient (REF) | payer MEDICARE, MEDICAID ==
[~2019-03-01] MED LIST changes: +ARTI99.0 OD; +HYDR25TAB PO; +LIPI20TA PO; +PRED10TA2 PO; +VALA500T5 PO
[2019-03-01 14:26] LABS: ALBUMIN 3.7 GM/DL (3.2-5.2); ALT/SGPT 21 U/L (12-78); BILIRUBIN,TOTAL 0.9 MG/DL (0.2-1.0); BLOOD UREA NITROGEN 8 MG/DL (7-18); CALCIUM LEVEL 8.8 MG/DL (8.8-10.2); CARBON DIOXIDE LEVEL 30 MEQ/L (21-32); CHLORIDE LEVEL 100 MEQ/L (98-107); CHOLESTEROL LEVEL 226 MG/DL (<200); CHOLESTEROL RISK RATIO 4.264 (<5); CREATININE FOR GFR 0.81 MG/DL (0.55-1.30); GLOMERULAR FILTRATION RATE > 60.0 (>45); GLUCOSE, FASTING 96 MG/DL (70-100); HDL CHOLESTEROL 53 MG/DL (>40); LDL CHOLESTEROL 142 MG/DL (<100); NON-HDL-C 173 MG/DL; POTASSIUM SERUM 3.9 MEQ/L (3.5-5.1); SODIUM LEVEL 137 MEQ/L (136-145); TOTAL PROTEIN 6.9 GM/DL (6.4-8.2); TRIGLYCERIDES LEVEL 156 MG/DL (<150)
[2019-03-01 14:32] LABS: TOTAL 25(OH) VITAMIN D 67.5 NG/ML (30.0-100.0)
== END ==
LOC: M SFHCSACK 08:03
PROVIDERS: ATTEND Physician Assistant
DX: I10 Essential (primary) hypertension (principal); E78.49 Other hyperlipidemia; E11.9 Type 2 diabetes mellitus without complications; E55.9 Vitamin D deficiency, unspecified

== ENCOUNTER → 2019-09-06 | Outpatient (REF) | payer MEDICARE, MEDICAID ==
[~2019-09-06] MED LIST changes: -/IPRA3SP; -/MOXI40TA; -ARTI99.0 OD; +ARTIDRO2 OD; +ASPI-1 PO; -ASPI325T PO; +ATRO1SOL13; +AVEL1TAB2
[2019-09-06 16:14] LABS: BASO % 0.6 % (0.0-1.0); EOS # 0.1 10^3/uL (0.0-0.5); EOS % 2.2 % (0.0-3.0); HEMATOCRIT 45.6 % (36.0-47.0); HEMOGLOBIN 15.5 g/dl (12.0-15.5); LYMPH # 1.8 10^3/uL (1.5-5.0); LYMPH % 28.3 % (24.0-44.0); MEAN CORPUSCULAR HEMOGLOBIN 32.4 pg (27.0-33.0); MEAN CORPUSCULAR VOLUME 95.2 fl (80.0-96.0); MONO # 0.4 10^3/uL (0.0-0.8); MONO % 5.6 % (0.0-5.0); NEUTROPHILS # 4.1 10^3/uL (1.5-8.5); PLATELET COUNT, AUTOMATED 120 10^3/uL (150-450); RED BLOOD COUNT 4.79 10^6/uL (4.00-5.40); WHITE BLOOD COUNT 6.4 10^3/uL (4.0-10.0)
[2019-09-06 16:29] LABS: HEMOGLOBIN A1c 5.5 %
[2019-09-06 16:37] LABS: ALBUMIN 3.8 GM/DL (3.2-5.2); ALT/SGPT 24 U/L (12-78); BILIRUBIN,TOTAL 0.8 MG/DL (0.2-1.0); BLOOD UREA NITROGEN 9 MG/DL (7-18); CALCIUM LEVEL 9.1 MG/DL (8.8-10.2); CARBON DIOXIDE LEVEL 30 MEQ/L (21-32); CHLORIDE LEVEL 102 MEQ/L (98-107); CHOLESTEROL LEVEL 218 MG/DL (<200); CHOLESTEROL RISK RATIO 4.274 (<5); GLOMERULAR FILTRATION RATE > 60.0 (>45); GLUCOSE, FASTING 93 MG/DL (70-100); HDL CHOLESTEROL 51 MG/DL (>40); LDL CHOLESTEROL 132 MG/DL (<100); NON-HDL-C 167 MG/DL; POTASSIUM SERUM 4.1 MEQ/L (3.5-5.1); SODIUM LEVEL 139 MEQ/L (136-145); TOTAL PROTEIN 7.3 GM/DL (6.4-8.2); TRIGLYCERIDES LEVEL 174 MG/DL (<150)
[2019-09-06 16:44] LABS: TOTAL 25(OH) VITAMIN D 64.4 NG/ML (30.0-100.0)
[2019-09-06 16:47] LABS: MALB URINE SIEMENS 19.4 MG/L; MAU/CREAT RATIO 8.7 MCG/MG (0.0-30.0)
== END ==
LOC: M SFHCSACK 08:38
PROVIDERS: ATTEND Physician Assistant
DX: E78.2 Mixed hyperlipidemia (principal); E55.9 Vitamin D deficiency, unspecified; E11.9 Type 2 diabetes mellitus without complications; I10 Essential (primary) hypertension

== ENCOUNTER → 2020-03-15 | Outpatient (REF) | payer MEDICARE, MEDICAID ==
[~2020-03-15] MED LIST changes: -ARTIDRO2 OD; +POLYOPD OD
[2020-03-15 11:46] LABS: BASO % 0.5 % (0.0-1.0); EOS # 0.1 10^3/uL (0.0-0.5); EOS % 1.8 % (0.0-3.0); HEMATOCRIT 46.8 % (36.0-47.0); HEMOGLOBIN 15.7 g/dl (12.0-15.5); LYMPH # 1.8 10^3/uL (1.5-5.0); LYMPH % 23.5 % (24.0-44.0); MEAN CORPUSCULAR HEMOGLOBIN 30.8 pg (27.0-33.0); MEAN CORPUSCULAR HGB CONC 33.5 g/dl (32.0-36.5); MEAN CORPUSCULAR VOLUME 91.9 fl (80.0-96.0); MONO # 0.4 10^3/uL (0.0-0.8); MONO % 4.9 % (0.0-5.0); NEUTROPHILS # 5.4 10^3/uL (1.5-8.5); NEUTROPHILS % 68.9 % (36.0-66.0); PLATELET COUNT, AUTOMATED 153 10^3/uL (150-450); RED BLOOD COUNT 5.09 10^6/uL (4.00-5.40); WHITE BLOOD COUNT 7.8 10^3/uL (4.0-10.0)
[2020-03-15 12:03] LABS: ALT/SGPT 28 U/L (12-78); BLOOD UREA NITROGEN 7 MG/DL (7-18); CALCIUM LEVEL 9.5 MG/DL (8.8-10.2); CARBON DIOXIDE LEVEL 31 MEQ/L (21-32); CHLORIDE LEVEL 100 MEQ/L (98-107); CREATININE FOR GFR 0.72 MG/DL (0.55-1.30); GLOMERULAR FILTRATION RATE > 60.0 (>45); GLUCOSE, FASTING 103 MG/DL (70-100); POTASSIUM SERUM 3.9 MEQ/L (3.5-5.1); SODIUM LEVEL 136 MEQ/L (136-145)
[2020-03-15 12:04] LABS: ALBUMIN 3.9 GM/DL (3.2-5.2); BILIRUBIN,TOTAL 0.8 MG/DL (0.2-1.0); CHOLESTEROL LEVEL 257 MG/DL (<200); CHOLESTEROL RISK RATIO 5.354 (<5); FREE T4 1.11 NG/DL (0.76-1.46); HDL CHOLESTEROL 48 MG/DL (>40); LDL CHOLESTEROL 175 MG/DL (<100); NON-HDL-C 209 MG/DL; TOTAL PROTEIN 7.5 GM/DL (6.4-8.2); TRIGLYCERIDES LEVEL 169 MG/DL (<150)
== END ==
LOC: M SFHCLERA 08:09
PROVIDERS: ATTEND Physician Assistant
DX: I10 Essential (primary) hypertension (principal); E78.2 Mixed hyperlipidemia; Z13.29 Encounter for screening for other suspected endocrine disorder; E11.9 Type 2 diabetes mellitus without complications; E55.9 Vitamin D deficiency, unspecified

== ENCOUNTER → 2020-10-16 | Outpatient (REF) | payer MEDICARE, MEDICAID ==
[2020-10-16 11:26] LABS: HEMOGLOBIN A1c 5.5 %
[2020-10-16 11:36] LABS: ALBUMIN 3.9 GM/DL (3.2-5.2); ALT/SGPT 19 U/L (12-78); BILIRUBIN,TOTAL 0.8 MG/DL (0.2-1.0); BLOOD UREA NITROGEN 10 MG/DL (7-18); CALCIUM LEVEL 9.1 MG/DL (8.8-10.2); CARBON DIOXIDE LEVEL 31 MEQ/L (21-32); CHLORIDE LEVEL 98 MEQ/L (98-107); CHOLESTEROL LEVEL 202 MG/DL (<200); CHOLESTEROL RISK RATIO 3.884 (<5); CREATININE FOR GFR 0.79 MG/DL (0.55-1.30); GLOMERULAR FILTRATION RATE > 60.0 (>45); GLUCOSE, FASTING 97 MG/DL (70-100); HDL CHOLESTEROL 52 MG/DL (>40); LDL CHOLESTEROL 124 MG/DL (<100); NON-HDL-C 150 MG/DL; POTASSIUM SERUM 4.5 MEQ/L (3.5-5.1); SODIUM LEVEL 135 MEQ/L (136-145); TOTAL PROTEIN 7.1 GM/DL (6.4-8.2); TRIGLYCERIDES LEVEL 131 MG/DL (<150)
[2020-10-16 12:03] LABS: TOTAL 25(OH) VITAMIN D 51.7 NG/ML (30.0-100.0)
== END ==
LOC: M PLALAB 08:01
PROVIDERS: ATTEND Nurse Practitioner Family
DX: I10 Essential (primary) hypertension (principal); E11.9 Type 2 diabetes mellitus without complications; E78.2 Mixed hyperlipidemia; E55.9 Vitamin D deficiency, unspecified

== ENCOUNTER → 2020-12-05 | Outpatient (CLI) | payer MEDICARE, MEDICAID ==
[~2020-12-05] MED LIST changes: +HYDR-3490 PO; -HYDR25TAB PO
--- NOTE | 2020-12-05 12:41 | REP ---
INDICATION: NICOTINE DEPENDENCE COMPARISON: 01/12/2018 TECHNIQUE: Axial noncontrast images from the thoracic inlet to the upper abdomen using low-dose lung screening technique (LDCT). FINDINGS: Lung newberry are well aerated and relatively clear. Minimal linear scarring at the right lung base noted. No suspicious consolidation, nodule or mass. No pleural effusion. No pneumothorax. Tracheobronchial tree is patent. IMPRESSION: Lung-RADS category 1. No significant suspicious abnormalities noted. Management recommendations include annual low-dose CT surveillance. <Electronically signed by Mann West > 12/05/20 1234
== END ==
LOC: M RAD 12:15
PROVIDERS: ATTEND Nurse Practitioner Family
DX: Z12.2 Encounter for screening for malignant neoplasm of respiratory organs (principal); F17.218 Nicotine dependence, cigarettes, with other nicotine-induced disorders

== ENCOUNTER → 2021-04-17 | Outpatient (CLI) | payer MEDICARE, MEDICAID ==
[2021-04-17 10:34] LABS: HEMOGLOBIN A1c 5.6 %
[2021-04-17 10:44] LABS: ALBUMIN 3.7 GM/DL (3.2-5.2); ALT/SGPT 26 U/L (12-78); BILIRUBIN,TOTAL 1.1 MG/DL (0.2-1.0); BLOOD UREA NITROGEN 9 MG/DL (7-18); CALCIUM LEVEL 9.2 MG/DL (8.8-10.2); CARBON DIOXIDE LEVEL 30 MEQ/L (21-32); CHLORIDE LEVEL 99 MEQ/L (98-107); CHOLESTEROL LEVEL 245 MG/DL (<200); CHOLESTEROL RISK RATIO 4.711 (<5); CREATININE FOR GFR 0.73 MG/DL (0.55-1.30); GLOMERULAR FILTRATION RATE > 60.0 (>45); GLUCOSE, FASTING 91 MG/DL (70-100); HDL CHOLESTEROL 52 MG/DL (>40); LDL CHOLESTEROL 165 MG/DL (<100); NON-HDL-C 193 MG/DL; SODIUM LEVEL 135 MEQ/L (136-145); TOTAL PROTEIN 7.2 GM/DL (6.4-8.2); TRIGLYCERIDES LEVEL 139 MG/DL (<150)
[2021-04-17 10:49] LABS: TOTAL 25(OH) VITAMIN D 35.5 NG/ML (30.0-100.0)
[2021-04-17 10:54] LABS: MALB URINE SIEMENS 7.6 MG/L; MAU/CREAT RATIO 5.8 MCG/MG (0.0-30.0)
== END ==
LOC: M WUC 08:03
PROVIDERS: ATTEND Nurse Practitioner Family
DX: E55.9 Vitamin D deficiency, unspecified (principal); I10 Essential (primary) hypertension; E11.9 Type 2 diabetes mellitus without complications; Z79.899 Other long term (current) drug therapy

== ENCOUNTER → 2021-08-03 | Outpatient (CLI) | payer MEDICARE, MEDICAID ==
[2021-08-03 11:53] LABS: ALBUMIN 3.8 GM/DL (3.2-5.2); ALT/SGPT 32 U/L (12-78); BLOOD UREA NITROGEN 13 MG/DL (7-18); CALCIUM LEVEL 9.3 MG/DL (8.8-10.2); CARBON DIOXIDE LEVEL 30 MEQ/L (21-32); CHLORIDE LEVEL 98 MEQ/L (98-107); CHOLESTEROL LEVEL 201 MG/DL (<200); CHOLESTEROL RISK RATIO 3.654 (<5); CREATININE FOR GFR 0.76 MG/DL (0.55-1.30); GLOMERULAR FILTRATION RATE > 60.0 (>45); GLUCOSE, FASTING 101 MG/DL (70-100); HDL CHOLESTEROL 55 MG/DL (>40); LDL CHOLESTEROL 117 MG/DL (<100); NON-HDL-C 146 MG/DL; POTASSIUM SERUM 3.6 MEQ/L (3.5-5.1); SODIUM LEVEL 134 MEQ/L (136-145); TOTAL PROTEIN 7.2 GM/DL (6.4-8.2); TRIGLYCERIDES LEVEL 144 MG/DL (<150)
== END ==
LOC: M WUC 08:02
PROVIDERS: ATTEND Nurse Practitioner Family
DX: E78.2 Mixed hyperlipidemia (principal)

== ENCOUNTER → 2021-09-07 | Outpatient (CLI) | payer MEDICARE, MEDICAID ==
--- NOTE | 2021-09-07 09:16 | REPMRS ---
Patient History The patient states she has not had a clinical breast exam in over a year. Patient is postmenopausal. Family history of unknown cancer in father. New baseline-priors no longer available No breast complaints today Patient signed the MRS sheet Priors are historical Patient Identification Verified Digital Woman Screen Mammo: September 07, 2021 - Exam #: [id number] Bilateral CC and MLO view(s) were taken. Technologist: Merle Hathaway, Technologist FINDINGS: There are scattered fibroglandular densities. The Volpara volumetric breast density category is: B. There is an asymmetric soft tissue density deep to the right nipple which merits further evaluation. There is no other evidence of dominant mass, architectural distortion, or grouped microcalcification typical of malignancy. 3-D tomosynthesis shows no additional findings. Assessment: BI-RADS/ACR category 0 mammogram, Incomplete: Need additional imaging evaluation and/or prior mammograms for comparison. Recommendation Ultrasound and special view mammogram of the right breast. This patient's [facility] Lifetime Breast Cancer RIsk is estimated at 3.5 %. This mammogram was interpreted with the aid of an FDA-approved computer-aided dectection system. Electronically Signed By: Brandyn Bowman MD 09/07/21 0916
== END ==
LOC: M WHC 08:16
PROVIDERS: ATTEND Nurse Practitioner Family
DX: R92.2 Inconclusive mammogram (principal); Z78.0 Asymptomatic menopausal state; Z80.8 Family history of malignant neoplasm of other organs or systems

== ENCOUNTER → 2021-09-25 | Outpatient (CLI) | payer MEDICARE, MEDICAID ==
--- NOTE | 2021-09-26 09:41 | REP ---
INDICATION: RIGHT BREAST ADD VIEWS. Isodense focal asymmetry, right breast. COMPARISON: Screening mammogram, 09/07/2021. TECHNIQUE: 3D spot CC and MLO views of the right breast were obtained. Targeted right breast ultrasound was performed. FINDINGS: The Volpara volumetric breast density pattern is b, there are scattered areas of fibroglandular density. The focal asymmetry, seen in the retroareolar area of the right breast, on the recent screening mammogram, is consistent with normal breast tissue at additional view mammography.. Right breast ultrasound: There are no cystic or solid masses seen in the right breast. IMPRESSION: BIRADS/ACR 1: Negative. This mammogram was interpreted with the aid of an FDA-approved computer-aided detection system. The patient letter being requested is M1. RECOMMENDATION: Repeat screening mammography recommended 1 year (for women over 40). <Electronically signed by Luis Garcia > 09/26/21 0938
--- NOTE | 2021-09-26 09:45 | REP ---
INDICATION: RIGHT BREAST ADD VIEWS. Isodense focal asymmetry, right breast. COMPARISON: Screening mammogram, 09/07/2021. TECHNIQUE: 3D spot CC and MLO views of the right breast were obtained. Targeted right breast ultrasound was performed. FINDINGS: The [place] volumetric breast density pattern is b, there are scattered areas of fibroglandular density. The focal asymmetry, seen in the retroareolar area of the right breast, on the recent screening mammogram, is consistent with normal breast tissue at additional view mammography.. Right breast ultrasound: There are no cystic or solid masses seen in the right breast. IMPRESSION: BIRADS/ACR: 1: Negative. This mammogram was interpreted with the aid of an FDA-approved computer-aided detection syste RECOMMENDATION: Follow-up screening mammogram in 1 year. <Electronically signed by Luis Garcia > 09/26/21 0941
== END ==
LOC: M WHC 12:46
PROVIDERS: ATTEND Nurse Practitioner Family
DX: R92.8 Other abnormal and inconclusive findings on diagnostic imaging of breast (principal)
CPT/HCPCS: 76642; 77065; G0279

== ENCOUNTER → 2022-08-01 | Outpatient (CLI) | payer MEDICARE, MEDICAID ==
[2022-08-01 11:13] LABS: HEMOGLOBIN A1c 5.9 %
[2022-08-01 11:24] LABS: ALBUMIN 3.6 GM/DL (3.2-5.2); ALT/SGPT 28 U/L (12-78); BILIRUBIN,TOTAL 0.7 MG/DL (0.2-1.0); BLOOD UREA NITROGEN 9 MG/DL (7-18); CALCIUM LEVEL 8.9 MG/DL (8.8-10.2); CARBON DIOXIDE LEVEL 27 MEQ/L (21-32); CHLORIDE LEVEL 100 MEQ/L (98-107); CHOLESTEROL LEVEL 218 MG/DL (<200); CHOLESTEROL RISK RATIO 4.541 (<5); CREATININE FOR GFR 0.73 MG/DL (0.55-1.30); GLOMERULAR FILTRATION RATE > 60.0 (>39); GLUCOSE, FASTING 97 MG/DL (70-100); HDL CHOLESTEROL 48 MG/DL (>40); LDL CHOLESTEROL 149 MG/DL (<100); NON-HDL-C 170 MG/DL; POTASSIUM SERUM 3.8 MEQ/L (3.5-5.1); SODIUM LEVEL 134 MEQ/L (136-145); TOTAL PROTEIN 7.1 GM/DL (6.4-8.2); TRIGLYCERIDES LEVEL 105 MG/DL (<150)
[2022-08-01 11:49] LABS: TOTAL 25(OH) VITAMIN D 24.9 NG/ML (30.0-100.0)
== END ==
LOC: M WUC 08:19
PROVIDERS: ATTEND Nurse Practitioner Adult Health
DX: E55.9 Vitamin D deficiency, unspecified (principal); E11.9 Type 2 diabetes mellitus without complications; E78.2 Mixed hyperlipidemia; Z79.899 Other long term (current) drug therapy

== ENCOUNTER → 2022-10-09 | Outpatient (CLI) | payer MEDICARE, MEDICAID | LOC: M WHC 07:53 | PROVIDERS: ATTEND Nurse Practitioner Adult Health | DX: Z12.31 Encounter for screening mammogram for malignant neoplasm of breast (principal) ==

== ENCOUNTER → 2023-02-03 | Outpatient (CLI) | payer MEDICARE, MEDICAID ==
[2023-02-03 10:28] LABS: MAU/CREAT RATIO 16.9 MCG/MG (0.0-30.0)
[2023-02-03 10:30] LABS: TOTAL 25(OH) VITAMIN D 70.4 NG/ML (20.0-100.0)
[2023-02-03 10:31] LABS: ALBUMIN 3.8 G/DL (3.2-5.2); ALKALINE PHOSPHATASE 67 U/L (46-116); ALT/SGPT 23 U/L (7.0-40); AST/SGOT 21 U/L (<34); BILIRUBIN,TOTAL 0.9 MG/DL (0.3-1.2); BLOOD UREA NITROGEN 10 MG/DL (9-23); CALCIUM LEVEL 9.1 MG/DL (8.3-10.6); CARBON DIOXIDE LEVEL 30 MMOL/L (20-31); CHLORIDE LEVEL 101 MMOL/L (98-107); CHOLESTEROL LEVEL 190 MG/DL (<200); CHOLESTEROL RISK RATIO 3.76 (<5); CREATININE FOR GFR 0.66 MG/DL (0.55-1.30); GLOMERULAR FILTRATION RATE > 60.0 (>39); GLUCOSE, FASTING 100 MG/DL (74-106); HDL CHOLESTEROL 50.4 MG/DL (>40); LDL CHOLESTEROL 121.2 MG/DL (<100); NON-HDL-C 140 MG/DL; POTASSIUM SERUM 4.1 MMOL/L (3.5-5.1); SODIUM LEVEL 137 MMOL/L (136-145); TOTAL PROTEIN 6.9 G/DL (5.7-8.2); TRIGLYCERIDES LEVEL 92 MG/DL (<150)
[2023-02-03 11:02] LABS: HEMOGLOBIN A1c 5.4 % (4.0-6.0)
== END ==
LOC: M WUC 08:04
PROVIDERS: ATTEND Nurse Practitioner Adult Health
DX: E55.9 Vitamin D deficiency, unspecified (principal); E11.9 Type 2 diabetes mellitus without complications; Z13.29 Encounter for screening for other suspected endocrine disorder; Z79.899 Other long term (current) drug therapy

== ENCOUNTER → 2023-08-05 | Outpatient (CLI) | payer MEDICARE, MEDICAID ==
[~2023-08-05] MED LIST changes: +ARTIDRO4 OD; -POLYOPD OD
[2023-08-05 10:25] LABS: HEMATOCRIT 44.7 % (36.0-47.0); HEMOGLOBIN 14.9 g/dl (12.0-15.5); MEAN CORPUSCULAR HEMOGLOBIN 32.1 pg (27.0-33.0); MEAN CORPUSCULAR HGB CONC 33.3 g/dl (32.0-36.5); MEAN CORPUSCULAR VOLUME 96.3 fl (80.0-96.0); PLATELET COUNT, AUTOMATED 166 10^3/uL (150-450); RED BLOOD COUNT 4.64 10^6/uL (4.00-5.40); WHITE BLOOD COUNT 7.2 10^3/uL (4.0-10.0)
[2023-08-05 10:52] LABS: HEMOGLOBIN A1c 5.1 % (4.0-6.0)
[2023-08-05 10:58] LABS: CREATININE, URINE 129.2 MG/DL
[2023-08-05 11:00] LABS: MAU/CREAT RATIO 4.6 MCG/MG (0.0-30.0)
[2023-08-05 11:02] LABS: THYROID STIMULATING HORMONE 2.668 uIU/ML (0.55-4.78); TOTAL 25(OH) VITAMIN D 65.6 NG/ML (20.0-100.0)
[2023-08-05 11:03] LABS: ALBUMIN 3.8 G/DL (3.2-5.2); ALKALINE PHOSPHATASE 72 U/L (46-116); ALT/SGPT 22 U/L (7.0-40); AST/SGOT 17 U/L (<34); BILIRUBIN,TOTAL 1.1 MG/DL (0.3-1.2); BLOOD UREA NITROGEN 8 MG/DL (9-23); CALCIUM LEVEL 9.2 MG/DL (8.3-10.6); CARBON DIOXIDE LEVEL 31 MMOL/L (20-31); CHLORIDE LEVEL 100 MMOL/L (98-107); CHOLESTEROL LEVEL 218 MG/DL (<200); GLOMERULAR FILTRATION RATE > 60.0 (>39); GLUCOSE, FASTING 81 MG/DL (74-106); HDL CHOLESTEROL 49.5 MG/DL (>40); LDL CHOLESTEROL 138.7 MG/DL (<100); NON-HDL-C 168.5 MG/DL; POTASSIUM SERUM 4.1 MMOL/L (3.5-5.1); SODIUM LEVEL 138 MMOL/L (136-145); TOTAL PROTEIN 7.1 G/DL (5.7-8.2); TRIGLYCERIDES LEVEL 149 MG/DL (<150)
== END ==
LOC: M WUC 08:08
PROVIDERS: ATTEND Nurse Practitioner Adult Health
DX: E78.2 Mixed hyperlipidemia (principal); E11.9 Type 2 diabetes mellitus without complications; Z13.29 Encounter for screening for other suspected endocrine disorder

== ENCOUNTER → 2023-10-10 | Outpatient (CLI) | payer MEDICARE, MEDICAID | LOC: M WHC 11:01 | PROVIDERS: ATTEND Nurse Practitioner Adult Health | DX: Z12.31 Encounter for screening mammogram for malignant neoplasm of breast (principal); R92.1 Mammographic calcification found on diagnostic imaging of breast ==

== ENCOUNTER → 2024-03-05 | Outpatient (CLI) | payer MEDICARE, MEDICAID ==
[2024-03-05 10:38] LABS: HEMATOCRIT 45.3 % (36.0-47.0); HEMOGLOBIN 14.9 g/dl (12.0-15.5); MEAN CORPUSCULAR HEMOGLOBIN 32.5 pg (27.0-33.0); MEAN CORPUSCULAR HGB CONC 32.9 g/dl (32.0-36.5); MEAN CORPUSCULAR VOLUME 98.7 fl (80.0-96.0); PLATELET COUNT, AUTOMATED 129 10^3/uL (150-450); RED BLOOD COUNT 4.59 10^6/uL (4.00-5.40); WHITE BLOOD COUNT 6.1 10^3/uL (4.0-10.0)
[2024-03-05 11:12] LABS: CREATININE, URINE 56.8 MG/DL; MAU/CREAT RATIO 8.8 MCG/MG (0.0-30.0)
[2024-03-05 11:13] LABS: ALBUMIN 3.7 G/DL (3.2-5.2); ALKALINE PHOSPHATASE 72 U/L (46-116); ALT/SGPT 18 U/L (7.0-40); AST/SGOT 20 U/L (<34); BILIRUBIN,TOTAL 0.9 MG/DL (0.3-1.2); BLOOD UREA NITROGEN 10 MG/DL (9-23); CALCIUM LEVEL 9.4 MG/DL (8.3-10.6); CARBON DIOXIDE LEVEL 32 MMOL/L (20-31); CHLORIDE LEVEL 104 MMOL/L (98-107); CHOLESTEROL LEVEL 192 MG/DL (<200); CREATININE FOR GFR 0.67 MG/DL (0.55-1.30); GLOMERULAR FILTRATION RATE > 60.0 (>39); GLUCOSE, FASTING 96 MG/DL (74-106); HDL CHOLESTEROL 56.4 MG/DL (>40); LDL CHOLESTEROL 110.4 MG/DL (<100); NON-HDL-C 135.6 MG/DL; POTASSIUM SERUM 4.3 MMOL/L (3.5-5.1); SODIUM LEVEL 137 MMOL/L (136-145); TOTAL PROTEIN 6.9 G/DL (5.7-8.2); TRIGLYCERIDES LEVEL 126 MG/DL (<150)
[2024-03-05 11:15] LABS: FREE T4 0.98 NG/DL (0.89-1.76); TOTAL 25(OH) VITAMIN D 46.9 NG/ML (20.0-100.0)
== END ==
LOC: M WUC 08:03
PROVIDERS: ATTEND Nurse Practitioner Adult Health
DX: E11.9 Type 2 diabetes mellitus without complications (principal); Z13.29 Encounter for screening for other suspected endocrine disorder; E78.2 Mixed hyperlipidemia; E55.9 Vitamin D deficiency, unspecified

== ENCOUNTER → 2024-08-31 | Outpatient (CLI) | payer MEDICARE, MEDICAID ==
[2024-08-31 10:45] LABS: HEMATOCRIT 45.1 % (36.0-47.0); HEMOGLOBIN 14.6 g/dl (12.0-15.5); MEAN CORPUSCULAR HEMOGLOBIN 31.3 pg (27.0-33.0); MEAN CORPUSCULAR HGB CONC 32.4 g/dl (32.0-36.5); MEAN CORPUSCULAR VOLUME 96.8 fl (80.0-96.0); PLATELET COUNT, AUTOMATED 136 10^3/uL (150-450); RED BLOOD COUNT 4.66 10^6/uL (4.00-5.40); WHITE BLOOD COUNT 6.8 10^3/uL (4.0-10.0)
[2024-08-31 11:11] LABS: HEMOGLOBIN A1c 5.1 % (4.0-6.0)
[2024-08-31 11:14] LABS: CREATININE, URINE 73.7 MG/DL; MALB URINE SIEMENS < 3.0 MG/L
[2024-08-31 11:15] LABS: FREE T4 1.06 NG/DL (0.89-1.76)
[2024-08-31 11:16] LABS: THYROID STIMULATING HORMONE 4.249 uIU/ML (0.55-4.78)
[2024-08-31 11:17] LABS: ALBUMIN 3.7 G/DL (3.2-5.2); ALKALINE PHOSPHATASE 76 U/L (46-116); ALT/SGPT 19 U/L (7.0-40); AST/SGOT 15 U/L (<34); BILIRUBIN,TOTAL 0.6 MG/DL (0.3-1.2); BLOOD UREA NITROGEN 11 MG/DL (9-23); CALCIUM LEVEL 9.4 MG/DL (8.3-10.6); CARBON DIOXIDE LEVEL 31 MMOL/L (20-31); CHLORIDE LEVEL 106 MMOL/L (98-107); CREATININE FOR GFR 0.66 MG/DL (0.55-1.30); GLOMERULAR FILTRATION RATE > 60.0 (>39); GLUCOSE, FASTING 92 MG/DL (74-106); POTASSIUM SERUM 4.5 MMOL/L (3.5-5.1); SODIUM LEVEL 140 MMOL/L (136-145); TOTAL 25(OH) VITAMIN D 40.5 NG/ML (20.0-100.0)
== END ==
LOC: M WUC 08:06
PROVIDERS: ATTEND Nurse Practitioner Adult Health
DX: E11.9 Type 2 diabetes mellitus without complications (principal); Z13.29 Encounter for screening for other suspected endocrine disorder; E55.9 Vitamin D deficiency, unspecified

== ENCOUNTER → 2024-11-15 | Outpatient (CLI) | payer MEDICARE, MEDICAID ==
[2024-11-15 10:16] LABS: HEMOGLOBIN 14.4 g/dl (12.0-15.5); MEAN CORPUSCULAR HEMOGLOBIN 32.1 pg (27.0-33.0); MEAN CORPUSCULAR HGB CONC 33.5 g/dl (32.0-36.5); MEAN CORPUSCULAR VOLUME 95.8 fl (80.0-96.0); PLATELET COUNT, AUTOMATED 108 10^3/uL (150-450); RED BLOOD COUNT 4.49 10^6/uL (4.00-5.40); WHITE BLOOD COUNT 5.6 10^3/uL (4.0-10.0)
[2024-11-15 10:40] LABS: CHOLESTEROL RISK RATIO 3.8 (<5)
[2024-11-15 10:44] LABS: FERRITIN 61.8 NG/ML (7.3-270.7)
== END ==
LOC: M WUC 08:01
PROVIDERS: ATTEND Nurse Practitioner Adult Health
DX: D69.6 Thrombocytopenia, unspecified (principal); E78.00 Pure hypercholesterolemia, unspecified

== ENCOUNTER → 2025-03-18 | Outpatient (CLI) | payer MEDICARE, MEDICAID ==
[2025-03-18 12:30] LABS: INR 0.97; PROTHROMBIN TIME 13.2 SECONDS (12.5-14.5)
[2025-03-18 12:31] LABS: HEMATOCRIT 45.9 % (36.0-47.0); HEMOGLOBIN 15.2 g/dl (12.0-15.5); MEAN CORPUSCULAR HEMOGLOBIN 32.2 pg (27.0-33.0); MEAN CORPUSCULAR HGB CONC 33.1 g/dl (32.0-36.5); MEAN CORPUSCULAR VOLUME 97.2 fl (80.0-96.0); PLATELET COUNT, AUTOMATED 124 10^3/uL (150-450); RED BLOOD COUNT 4.72 10^6/uL (4.00-5.40); WHITE BLOOD COUNT 5.9 10^3/uL (4.0-10.0)
[2025-03-18 12:43] LABS: ALBUMIN 3.6 G/DL (3.2-5.2); BILIRUBIN,TOTAL 0.9 MG/DL (0.3-1.2); CALCIUM LEVEL 8.7 MG/DL (8.3-10.6); CHOLESTEROL RISK RATIO 4.19 (<5); CREATININE FOR GFR 0.71 MG/DL (0.55-1.30); FERRITIN 55.7 NG/ML (7.3-270.7); FREE T4 1.05 NG/DL (0.89-1.76); GLOMERULAR FILTRATION RATE 89.7 (>39); HDL CHOLESTEROL 50.8 MG/DL (>40); LDL CHOLESTEROL 136.2 MG/DL (<100); NON-HDL-C 162.2 MG/DL; POTASSIUM SERUM 4.3 MMOL/L (3.5-5.1); THYROID STIMULATING HORMONE 3.954 uIU/ML (0.55-4.78); TOTAL 25(OH) VITAMIN D 43.3 NG/ML (20.0-100.0)
[2025-03-18 12:49] LABS: FOLATE 6.14 NG/ML (>5.4)
[2025-03-18 12:55] LABS: CREATININE, URINE 141.2 MG/DL; MAU/CREAT RATIO 13.4 MCG/MG (0.0-30.0)
[2025-03-18 13:41] LABS: HEMOGLOBIN A1c 4.8 % (4.0-6.0)
== END ==
LOC: M WUC 08:04
PROVIDERS: ATTEND Nurse Practitioner Adult Health
DX: D69.6 Thrombocytopenia, unspecified (principal); E11.9 Type 2 diabetes mellitus without complications; E78.2 Mixed hyperlipidemia; E55.9 Vitamin D deficiency, unspecified; Z13.29 Encounter for screening for other suspected endocrine disorder

== ENCOUNTER → 2025-09-05 | Outpatient (CLI) | payer MEDICARE, MEDICAID ==
[2025-09-05 13:10] LABS: PLATELET COUNT, AUTOMATED 147 10^3/uL (150-450)
[2025-09-05 13:14] LABS: CHOLESTEROL LEVEL 215.0 MG/DL (<200); CHOLESTEROL RISK RATIO 4.32 (<5); FREE T4 1.23 NG/DL (0.89-1.76); LDL CHOLESTEROL 138.5 MG/DL (<100); NON-HDL-C 165.3 MG/DL; TOTAL 25(OH) VITAMIN D 38.4 NG/ML (20.0-100.0); TRIGLYCERIDES LEVEL 134.0 MG/DL (<150); VITAMIN B12 LEVEL 402.0 PG/ML (211-911)
[2025-09-05 13:39] LABS: ESTIMATED AVERAGE GLUCOSE 100.0 MG/DL (60-110)
== END ==
LOC: M WUC 08:08
PROVIDERS: ATTEND Nurse Practitioner Adult Health
DX: D69.6 Thrombocytopenia, unspecified (principal); Z13.29 Encounter for screening for other suspected endocrine disorder; E11.9 Type 2 diabetes mellitus without complications; E55.9 Vitamin D deficiency, unspecified; E78.2 Mixed hyperlipidemia

== ENCOUNTER 2025-10-15 21:46 | Emergency (ER) | payer MEDICARE, MEDICAID ==
[~2025-10-15] VITALS: Ht 157.5 cm; Wt 84.3 kg
[2025-10-15 22:10] LABS: BASO # 0.0 10^3/uL (0.0-0.2); BASO % 0.6 % (0.0-1.0); EOS # 0.2 10^3/uL (0.0-0.5); EOS % 2.3 % (0.0-3.0); LYMPH # 2.4 10^3/uL (1.5-5.0); LYMPH % 34.2 % (24.0-44.0); MONO # 0.3 10^3/uL (0.0-0.8); MONO % 4.8 % (2.0-8.0); NEUTROPHILS # 4.1 10^3/uL (1.5-8.5); NEUTROPHILS % 57.8 % (36.0-66.0); PLATELET COUNT, AUTOMATED 156 10^3/uL (150-450)
[2025-10-15] MEDS ORDERED: ISOVUE-370 76% 100 ML VIAL As Ordered ONE (22:11)
[2025-10-15 22:32] LABS: INR 0.94
[2025-10-15 22:34] LABS: ETHYL ALCOHOL (ETHANOL) 0.021 % (0.000-0.010)
[2025-10-15 22:36] LABS: CALCIUM LEVEL 8.6 MG/DL (8.3-10.6); CARBON DIOXIDE LEVEL 27 MMOL/L (20-31); CHLORIDE LEVEL 103 MMOL/L (98-107); CK-MB VALUE MASS < 1.0 NG/ML (<3.6); CREATININE FOR GFR 0.90 MG/DL (0.55-1.30); GLOMERULAR FILTRATION RATE 67.5 (>39); MAGNESIUM LEVEL 2.0 MG/DL (1.8-2.4); POTASSIUM SERUM 3.6 MMOL/L (3.5-5.1); SODIUM LEVEL 140 MMOL/L (136-145)
[2025-10-15 22:40] LABS: FREE T4 1.12 NG/DL (0.89-1.76)
[2025-10-15 22:44] LABS: CPK CREATINE PHOSPHOKINASE 70 U/L (34-145)
[2025-10-15 23:38] LABS: CK-MB VALUE MASS 1.1 NG/ML (<3.6)
[2025-10-15 23:42] LABS: CPK CREATINE PHOSPHOKINASE 72 U/L (34-145); MB/CK RELATIVE INDEX 1.52 (< OR =4)
[2025-10-16] MEDS: CLOPIDOGREL 75 MG TAB PO ONE (00:22)
[2025-10-16] MEDS: ASPIRIN 81 MG CHEWABLE TABLET PO ONE (00:22)
[2025-10-16 01:01] VITALS: BP 158/67; TEMP 96.3; O2SAT 96
[2025-10-16 01:04] LABS: KETONE, URINE AUTO RFX NEGATIVE (NEGATIVE); LEUKOCYTE ESTERASE UR AUTO RFX NEGATIVE (NEGATIVE); MUCUS, URINE RFX SMALL (NEGATIVE); NITRITE, URINE AUTO RFX NEGATIVE (NEGATIVE); RBC, URINE AUTO RFX 1 /HPF (0-3); SQUAM EPITHELIAL CELL UR AURFX 1 /HPF (0-6); WBC, URINE AUTO RFX 2 /HPF (0-3)
[2025-10-16 01:19] LABS: AMPHETAMINES LEVEL URINE NEGATIVE (NEGATIVE)
[2025-10-16 01:20] LABS: BARBITURATES URINE NEGATIVE (NEGATIVE); BENZODIAZEPINES URINE NEGATIVE (NEGATIVE); CANNABINOIDS URINE NEGATIVE (NEGATIVE); COCAINE METABOLITE URINE NEGATIVE (NEGATIVE); METHADONE URINE NEGATIVE (NEGATIVE); OPIATES URINE NEGATIVE (NEGATIVE); PHENCYCLIDINE URINE NEGATIVE (NEGATIVE)
== END 2025-10-16 01:20 | disposition short-term general hospital (02) ==
LOC: M ED 21:46
DX: G45.9 Transient cerebral ischemic attack, unspecified (principal); I66.02 Occlusion and stenosis of left middle cerebral artery; E11.9 Type 2 diabetes mellitus without complications; E78.5 Hyperlipidemia, unspecified; J44.9 Chronic obstructive pulmonary disease, unspecified; I10 Essential (primary) hypertension; F17.200 Nicotine dependence, unspecified, uncomplicated; Z88.5 Allergy status to narcotic agent; M50.31 Other cervical disc degeneration, high cervical region; M50.321 Other cervical disc degeneration at C4-C5 level; M50.322 Other cervical disc degeneration at C5-C6 level; M50.323 Other cervical disc degeneration at C6-C7 level; M48.02 Spinal stenosis, cervical region; Z79.82 Long term (current) use of aspirin; Z79.899 Other long term (current) drug therapy
CPT/HCPCS: 36415; 70450; 70496; 70498; 71045; 80047; 80048; 80307; 81001; 82077; 82550; 82553; 83605; 83735; 84439; 84443; 84484; 85025; 85610; 85730; 93005; 93041; 94760; 99285; Q9967

== ENCOUNTER → 2025-11-22 | Outpatient (CLI) | payer MEDICARE, MEDICAID | LOC: M RAD 07:04 | PROVIDERS: ATTEND Nurse Practitioner Adult Health | DX: Z12.2 Encounter for screening for malignant neoplasm of respiratory organs (principal); Z87.891 Personal history of nicotine dependence ==